=== PATIENT | male | born 1965 | race Caucasian/White ===

== ENCOUNTER → 2022-12-14 16:20 | Outpatient (CLI) | payer MEDICARE, SELFPAY ==
--- NOTE | 2022-12-14 15:15 | DI.RAD_ITS ---
Exam(s) XR LUMBAR SPINE COMP W FLEX/EX EXAM: XR LUMBAR SPINE COMP W FLEX/EX CLINICAL HISTORY: severe LBP - hx of fall, M54.50. TECHNIQUE: 2D digital imaging was performed of the lumbar spine. Seven images were obtained. AP, l ateral, right oblique, left oblique and L5-S1 spot views were obtained. COMPARISON: No exams were available for comparison FINDINGS: BONES: No fracture or destructive lesion. Vertebral bodies are unremarkable. No facet hypertrophy jorge a ntified. [facility] is seen in the lumbar spine. DISKS: Intervertebral disc spaces are maintained. ALIGNMENT: Lumbar spinal alignment is within normal limits. No spondylolysis or spondylolisthesis. SOFT TISSUE: Atherosclerosis. IMPRESSION: There is no acute fracture or subluxation. DATA REPOSITORY: RADIATION DOSE DELIVERED:
== END ==
PROVIDERS: PCP Registered Nurse; Visit Provider Preventive Medicine Occupational Medicine
DX: M54.50 Low back pain, unspecified (principal)
CPT/HCPCS: 72114